=== PATIENT | female | born 1955 | race Caucasian/White ===

== ENCOUNTER 2020-04-12 12:34 | Outpatient (CLI) | payer MEDICARE, SELFPAY ==
[2020-04-12 16:27] LABS: SARS-CoV-2 Ag Negative (Negative)
== END 2020-04-12 12:35 | disposition home or self-care (01) ==
PROVIDERS: PCP Physician Assistant; Visit Provider Physician Assistant
DX: Z20.822 Contact with and (suspected) exposure to COVID-19 (principal)
CPT/HCPCS: 87426; C9803

== ENCOUNTER 2020-10-01 09:55 | Outpatient (NON) | payer MEDICARE, SELFPAY ==
[2020-10-01 10:46] LABS: Anion Gap 15 mmol/L (8-16); Blood Urea Nitrogen 17 mg/dL (7-18); Calcium 8.7 mg/dL (8.5-10.1); Carbon Dioxide 25 mmol/L (21-32); Chloride 101 mmol/L (98-108); Estimated Glomerular Filt Rate 45; Glucose 148 mg/dL (70-99); Osmolality Calculated 296 mOsm/kg (285-295); Potassium 5.6 mmol/L (3.5-5.1); Sodium 141 mmol/L (136-145)
[2020-10-01 10:56] LABS: Vancomycin Trough 23.8 ug/mL (10.0-15.0)
== END 2020-10-01 09:56 | disposition home or self-care (01) ==
DX: M00.9 Pyogenic arthritis, unspecified (principal); Z79.2 Long term (current) use of antibiotics
CPT/HCPCS: 36415; 80048; 80202

== ENCOUNTER 2021-03-14 14:10 | Outpatient (CLI) | payer MEDICARE, SELFPAY ==
[2021-03-14 15:17] LABS: SARS-CoV-2 RNA PCR Negative (Negative)
== END 2021-03-14 14:11 | disposition home or self-care (01) ==
PROVIDERS: PCP Physician Assistant; Visit Provider Physician Assistant
DX: Z20.822 Contact with and (suspected) exposure to COVID-19 (principal)
CPT/HCPCS: C9803; U0003; U0005